=== PATIENT | male | born 1960 | race Caucasian/White ===

== ENCOUNTER 2016-06-03 10:09 | Emergency (ER) | payer OTHER ==
[~2016-06-03] VITALS: Ht 154.9 cm; Wt 71.0 kg
[~2016-06-03 10:09] MED LIST: BENA5TAB3; CEPH500C2; GLIP5TAB12; METF1000
[2016-06-03 10:30] VITALS: BP 131/80
[2016-06-03] MEDS ORDERED: BACITRACIN ZINC OINT UDPKT TOP ONE (10:45)
[2016-06-03] MEDS ORDERED: LIDOCAINE HCL 1% 20ML VIAL (Pyxis) INJ INFIL ONE (10:45)
== END 2016-06-03 11:29 | disposition home or self-care (01) ==
LOC: ER 11:06
DX: L02.01 Cutaneous abscess of face (principal); I10 Essential (primary) hypertension; E11.9 Type 2 diabetes mellitus without complications
CPT/HCPCS: 10060; 99283; J3490; Z7610

== ENCOUNTER 2016-06-04 07:55 | Emergency (ER) | payer OTHER ==
[~2016-06-04] VITALS: Ht 170.2 cm; Wt 70.0 kg
[2016-06-04 07:59] VITALS: BP 146/86
== END 2016-06-04 10:02 | disposition home or self-care (01) ==
LOC: ER 08:05
DX: M27.2 Inflammatory conditions of jaws (principal); E11.9 Type 2 diabetes mellitus without complications
CPT/HCPCS: 99281

== ENCOUNTER 2016-06-05 09:40 | Emergency (ER) | payer OTHER ==
[~2016-06-05] VITALS: Ht 160 cm; Wt 70.0 kg
[2016-06-05 09:44] VITALS: BP 146/89
== END 2016-06-05 10:44 | disposition home or self-care (01) ==
LOC: ER 10:31
DX: Z48.01 Encounter for change or removal of surgical wound dressing (principal); I10 Essential (primary) hypertension; E11.9 Type 2 diabetes mellitus without complications
CPT/HCPCS: 99281